=== PATIENT | male | born 1990 | race Caucasian/White ===

== ENCOUNTER 2022-10-17 15:13 | Emergency (ER) | payer OTHER ==
[2022-10-17 15:41] VITALS: TEMP 98.2
[2022-10-17] MEDS ORDERED: methocarbamoL 750 MG TAB PO STA (17:32)
--- NOTE | 2022-10-17 17:34 | ED ---
Back Pain HPI - General Chief Complaint: Back Pain/Injury Stated Complaint: [facility] back injury Time Seen by Provider: 10/17/22 17:21 Source: patient Limitations: no limitations - History of Present Illness Initial Comments: 32-year-old male presents to the ED with a chief complaint of back pain. Patient states that he was shoveling when all of a sudden he started to experience left lower back pain. Patient states pain was so severe that it brought him to his knees. Patient states since then pain has improved. Denies incontinence. Denies saddle anesthesia. Denies numbness or weakness. No other complaints. - Related Data Previous Rx's Medication Instructions Recorded Baclofen 10 mg PO TID PRN #20 tab 10/17/22 Allergies Allergy/AdvReac Type Severity Reaction Status Date / Time amoxicillin Allergy Nausea & Verified 10/17/22 15:41 Vomiting Review of Systems ROS Statement: Those systems with pertinent positive or pertinent negative responses have been documented in the HPI. ROS Other: All systems not noted in ROS Statement are negative. Past Medical History Past Medical History: Hypertension History of Any Multi-Drug Resistant Organisms: None Reported Past Surgical History: Hernia Repair Past Psychological History: No Psychological Hx Reported Smoking Status: Vaper Past Alcohol Use History: None Reported Past Drug Use History: None Reported General Exam Limitations: no limitations General appearance: alert, in no apparent distress (Sitting up, resting comfortably.) Neck exam: Present: normal inspection, other (No midline cervical spinal tenderness to palpation) Respiratory exam: Present: normal lung sounds bilaterally Cardiovascular Exam: Present: regular rate, normal rhythm GI/Abdominal exam: Present: soft Rectal exam: Present: deferred Extremities exam: Present: other (Strength and sensation symmetric and intact of bilateral upper and lower extremities.) Back exam: Present: other (No midline thoracic or lumbar spinal tenderness to palpation. Left lower paraspinal tenderness to palpation) Neurological exam: Present: alert, oriented X3 Skin exam: Present: warm, dry Course Vital Signs 10/17/22 15:39 Temperature 98.2 F Pulse Rate 92 Respiratory 20 Rate Blood Pressure 121/69 O2 Sat by Pulse 99 Oximetry Medical Decision Making - Medical Decision Making Was pt. sent in by a medical professional or institution (, PA, JET MECHANIC, urgent care, hospital, or senior care...) When possible be specific @ -No Did you speak to anyone other than the patient for history (EMS, parent, family, police, friend...)? What history was obtained from this source @ -No Did you review nursing and triage notes (agree or disagree)? Why? @ -I reviewed and agree with nursing and triage notes Were old charts reviewed (outside hosp., previous admission, EMS record, old EKG, old radiological studies, urgent care reports/EKG's, senior care records)? Report findings @ -No old charts were reviewed Differential Diagnosis (chest pain, altered mental status, abdominal pain women, abdominal pain men, vaginal bleeding, weakness, fever, dyspnea, syncope, headache, dizziness, GI bleed, back pain, seizure, CVA, palpatations, mental health, musculoskeletal)? @ -Differential Back Pain: Strain, zoster, cauda equina syndrome, epidural abscess, vertebral osteomyelitis, discitis, fracture, subluxation, disc herniation, DJD, spinal stenosis, dissection, AAA, pancreatitis, peptic ulcer disease, pyelonephritis, kidney stone, this is not meant to be an all-inclusive list. EKG interpreted by me (3pts min.). @ -None X-rays interpreted by me (1pt min.). @ -X-ray shows no fracture or other acute findings. CT interpreted by me (1pt min.). @ -None done U/S interpreted by me (1pt. min.). @ -None done What testing was considered but not performed or refused? (CT, X-rays, U/S, labs)? Why? @ -None What meds were considered but not given or refused? Why? @ -None Did you discuss the management of the patient with other professionals (professionals i.e. , PA, JET MECHANIC, lab, RT, psych nurse, licensed social worker, environmental studies program director, teacher, senior major gifts officer, leather case finisher)? Give summary @ -No Was smoking cessation discussed for >3mins.? @ -No Was critical care preformed (if so, how long)? @ -No Were there social determinants of health that impacted care today? How? (Homelessness, low income, unemployed, alcoholism, drug addiction, transportation, low edu. Level, literacy, decrease access to med. care, [facility], rehab)? @ -No Was there de-escalation of care discussed even if they declined (Discuss DNR or withdrawal of care, Hospice)? DNR status @ -No What co-morbidities impacted this encounter? (DM, HTN, Smoking, COPD, CAD, Cancer, CVA, ARF, Chemo, Hep., AIDS, mental health diagnosis, sleep apnea, morbid obesity)? @ -None Was patient admitted / discharged? Hospital course, mention meds given and route, prescriptions, significant lab abnormalities, going to OR and other pertinent info. @ -Discharge. Imaging showed no acute findings however evidence of mild degenerative disease. Patient had improvement of pain here with Robaxin and Tylenol. Symptoms likely musculoskeletal in nature. Provided prescription of baclofen. Advised follow-up with [facility] in 2-3 days. Discussed return precautions patient verbalizes agreement. Undiagnosed new problem with uncertain prognosis? @ -No Drug Therapy requiring intensive monitoring for toxicity (Heparin, Nitro, Insulin, Cardizem)? @ -No Were any procedures done? @ -No Diagnosis/symptom? @ -Back pain, muscle strain Acute, or Chronic, or Acute on Chronic? @ -Acute Uncomplicated (without systemic symptoms) or Complicated (systemic symptoms)? @ -Uncomplicated Side effects of treatment? @ -No Exacerbation, Progression, or Severe Exacerbation? @ -No Poses a threat to life or bodily function? How? (Chest pain, [place], [place], pneumonia, PE, COPD, DKA, ARF, appy, cholecystitis, CVA, Diverticulitis, Homicidal, Suicidal, threat to staff... and all critical care pts) @ -No Disposition Clinical Impression: Strain of muscle, fascia and tendon of lower back, initial encounter Disposition: HOME SELF-CARE Condition: Good Instructions (If sedation given, give patient instructions): Acute Low Back Pain (ED) Additional Instructions: Please return to the Emergency Department if symptoms worsen or any other concerns. Prescriptions: Baclofen 10 mg PO TID PRN #20 tab PRN Reason: Pain Is patient prescribed a controlled substance at d/c from ED?: No Referrals: Brian Solorzano DO [Primary Care Provider] - 1-2 days Time of Disposition: 19:06
--- NOTE | 2022-10-17 18:36 | XR ---
EXAMINATION TYPE: XR lumbar spine 2 or 3V DATE OF EXAM: 10/17/2022 5:53 PM INDICATION: Patient age:Male; 32 years old; Reason for study: lower back pain; [facility]. COMPARISON: None TECHNIQUE: Frontal, lateral and coned in L5-S1 lateral views of the spine. FINDINGS: No evidence of any acute osseous pathology. No evidence of loss of vertebral body height i s seen. There is normal alignment of the lumbar vertebral bodies. Mild scattered disc space narrowing . Multilevel marginal osteophyte formation throughout the visualized spine. There is facet joint arth ropathy throughout the spine. Scattered at least mild neural foraminal stenosis. IMPRESSION: 1. No acute fracture. 2. Mild multilevel disc degeneration.
[2022-10-17] MEDS ORDERED: ACETAMINOPHEN TAB 500 MG TAB PO STA (18:50)
[2022-10-17 19:24] VITALS: BP 124/6; PULSE 76; RESP 18
== END 2022-10-17 19:24 | disposition home or self-care (01) ==
LOC: EC 15:13
DX: S39.012A Strain of muscle, fascia and tendon of lower back, initial encounter (principal); M51.36 Other intervertebral disc degeneration, lumbar region; I10 Essential (primary) hypertension; F17.290 Nicotine dependence, other tobacco product, uncomplicated; Z88.0 Allergy status to penicillin; X58.XXXA Exposure to other specified factors, initial encounter
CPT/HCPCS: 72100; 99283